=== PATIENT | female | born 1995 | race Caucasian/White ===

== ENCOUNTER 2017-03-30 12:00 | Emergency (ER) | payer OTHER ==
--- NOTE | 2017-03-30 14:16 | UC ---
Upper Extremity HPI - HPI Summary HPI Summary: Fall backwards onto buttocks and wrist. She has right wrist swelling and tenderness. She is right handed. She was snowboarding. - History of Current Complaint Chief Complaint: UCUpperExtremity Stated Complaint: RT WRIST INJURY Time Seen by Provider: 03/30/17 14:06 Hx Obtained From: Patient Hx Last Menstrual Period: 03/19/17 Onset/Duration: Sudden Onset, Lasting Hours Severity Initially: Moderate Severity Currently: Moderate Pain Intensity: 6 Location Of Pain: Is Discrete @ Character: Dull, Aching Aggravating Factor(s): Movement, Lifting, Flexion, Extension Alleviating Factor(s): Elevation, Rest Associated Signs And Symptoms: Positive: Swelling Related History: Dominant Hand Right - Allergies/Home Medications Allergies/Adverse Reactions: Allergies Allergy/AdvReac Type Severity Reaction Status Date / Time cillins Allergy Hives Uncoded 03/30/17 13:54 Home Medications: Home Medications Bcp 1 tab PO DAILY 03/30/17 [History] Ibuprofen [Ibuprofen 200 MG] 600 mg PO BID PRN 03/30/17 [History Confirmed 03/30] PMH/Surg Hx/FS Hx/Imm Hx Previously Healthy: Yes - Surgical History Surgical History: None - Family History Known Family History: Positive: Other - no related wrist family history. - Social History Occupation: Student Alcohol Use: None Substance Use Type: None Smoking Status (MU): Never Smoked Tobacco Review of Systems Musculoskeletal: Arthralgia All Other Systems Reviewed And Are Negative: Yes Physical Exam Triage Information Reviewed: Yes Appearance: Well-Appearing, Well-Nourished, Pain Distress - prefers not to move right wrist. Vital Signs: Initial Vital Signs Temp 99.2 F 03/30/17 13:55 Pulse 91 03/30/17 13:55 Resp 18 03/30/17 13:55 BP 127/74 03/30/17 13:55 Pulse Ox 100 03/30/17 13:55 Vital Signs Reviewed: Yes Eyes: Positive: Conjunctiva Clear ENT: Positive: Normal ENT inspection Neck: Positive: Supple, Nontender, No Lymphadenopathy Respiratory: Positive: No respiratory distress, No accessory muscle use. Negative: Respiratory distress, Decreased breath sounds, Accessory muscle use, Crackles, Rhonchi, Stridor Cardiovascular: Positive: Brisk Capillary Refill Abdomen Description: Negative: Distended, Guarding Musculoskeletal Exam: Other - Right wrist distal radius swelling and tenderness. No snuff box tenderness. No obvious deformity. No metacarpal tenderness or swelling. No elbow tenderness. Neurological: Positive: Alert, Muscle Tone Normal. Negative: Fatigued Psychological: Positive: Normal Response To Family, Age Appropriate Behavior Skin: Negative: rashes Diagnostics - Radiology No standard instances Xray Interpretation: Positive (See Comments) - right distal radius buckle fracture. Radiology Interpretation Completed By: ED Physician Upper Extremity Course/Dx - Differential Dx/Diagnosis Provider Diagnoses: right wrist fracture. Discharge - Discharge Plan Condition: Good Disposition: HOME Patient Education Materials: Wrist Fracture in Adults (ED) Forms: *School Release Referrals: No Primary Care Phys,NOPCP [Primary Care Provider] - Edu Heard MD [Medical Doctor] -
--- NOTE | 2017-03-30 14:49 | RAD ---
INDICATION: Traumatic fracture right wrist COMPARISON: None TECHNIQUE: AP, lateral, and oblique views were obtained. FINDINGS: There is a mildly impacted intra-articular distal radial fracture. No other fractures are evident. There is mild diffuse soft tissue swelling. IMPRESSION: MILD IMPACTED INTRA-ARTICULAR FRACTURE OF THE DISTAL RADIUS
== END 2017-03-30 14:55 | disposition home or self-care (01) ==
LOC: UCCORT 12:00
DX: S52.571A Other intraarticular fracture of lower end of right radius, initial encounter for closed fracture (principal); W19.XXXA Unspecified fall, initial encounter; Y93.23 Activity, snow (alpine) (downhill) skiing, snowboarding, sledding, tobogganing and snow tubing; Y92.9 Unspecified place or not applicable; Z88.0 Allergy status to penicillin
CPT/HCPCS: 25600; 99201; G0463

== ENCOUNTER 2017-04-17 16:10 | Emergency (ER) | payer OTHER ==
[2017-04-17 18:26] VITALS: BP 131/81
--- NOTE | 2017-04-17 18:41 | UC ---
Throat Pain/Nasal Brody HPI - HPI Summary HPI Summary: 21 year old female with sore throat. Sore throat onset this AM, headache, muscle aches,feeling cold [ End ] - History of Current Complaint Chief Complaint: UCRespiratory Stated Complaint: SORE THROAT, HEADACHE Time Seen by Provider: 04/17/17 18:34 Hx Obtained From: Patient Hx Last Menstrual Period: 04/09/17 Onset/Duration: Sudden Onset Pain Intensity: 3 - Allergies/Home Medications Allergies/Adverse Reactions: Allergies Allergy/AdvReac Type Severity Reaction Status Date / Time banana Allergy Vomiting Verified 04/17/17 18:11 cillins Allergy Hives Uncoded 04/17/17 18:11 pine Allergy Swelling Uncoded 04/17/17 18:11 Of Face,Lips,& Throat Home Medications: Home Medications Eucalyptus/Menthol [Cerna Cough Drops] 1 aisha MT Q3H PRN 04/17/17 [History Confirmed 04/17/17] PMH/Surg Hx/FS Hx/Imm Hx Previously Healthy: Yes - Surgical History Surgical History: None - Family History Known Family History: Positive: Other - no related wrist family history. - Social History Occupation: Student Lives: Dormitory/Roommates Alcohol Use: None Substance Use Type: None Smoking Status (MU): Never Smoked Tobacco Review of Systems Constitutional: Fatigue ENT: Sore Throat, Nasal Discharge Musculoskeletal: Arthralgia Is Patient Immunocompromised?: No All Other Systems Reviewed And Are Negative: Yes Physical Exam Triage Information Reviewed: Yes Appearance: Well-Appearing, No Pain Distress, Well-Nourished Vital Signs: Initial Vital Signs Temp 100.1 F 04/17/17 18:14 Pulse 115 04/17/17 18:14 Resp 18 04/17/17 18:14 BP 131/81 04/17/17 18:14 Pulse Ox 100 04/17/17 18:14 Vital Signs Reviewed: Yes Eye Exam: Normal ENT Exam: Normal Dental Exam: Normal Neck exam: Normal Neck: Positive: 1 Respiratory Exam: Normal Cardiovascular Exam: Normal Musculoskeletal Exam: Normal Neurological Exam: Normal Psychological Exam: Normal Skin Exam: Normal Throat Pain/Nasal Course/Dx - Differential Dx/Diagnosis Differential Diagnosis/HQI/PQRI: Laryngitis, Pharyngitis, Sinusitis, Tonsillitis , URI Discharge - Discharge Plan Referrals: Nimisha Davison MD [Primary Care Provider] -
--- NOTE | 2017-04-17 18:50 | UC ---
Throat Pain/Nasal Brody HPI - HPI Summary HPI Summary: 21 y/o female presents to the urgent care c/o sore throat, MEJIA and muscle aches and chills since this morning. Mild subjective fever this morning. She took Ibuprofen PO 400mg to alleviate symptoms and she felt better. No flu exposure. Pain is 3/10 w/ swallowing. Pt is concern w/ strep since she has Hx of Strep in the past. PT denies cough, nasal congestion, SOB, chest pain, abdominal pain, N/ V/D - History of Current Complaint Chief Complaint: UCRespiratory Stated Complaint: SORE THROAT, HEADACHE Time Seen by Provider: 04/17/17 18:34 Hx Obtained From: Patient Hx Last Menstrual Period: 04/09/17 ?: No Onset/Duration: Gradual Onset, Lasting Days - today Severity: Mild Pain Intensity: 3 Pain Scale Used: 0-10 Numeric Cough: None Associated Signs & Symptoms: Positive: Dysphagia, Fever - subjective w/ chills. Negative: Sinus Discomfort, Nasal Discharge, Rash - Epiglottits Risk Factors Epiglottis Risk Factors: Negative - Allergies/Home Medications Allergies/Adverse Reactions: Allergies Allergy/AdvReac Type Severity Reaction Status Date / Time banana Allergy Vomiting Verified 04/17/17 18:11 cillins Allergy Hives Uncoded 04/17/17 18:11 pine Allergy Swelling Uncoded 04/17/17 18:11 Of Face,Lips,& Throat Home Medications: Home Medications Eucalyptus/Menthol [Cough Drops] 1 aisha MT Q3H PRN 04/17/17 [History Confirmed ] PMH/Surg Hx/FS Hx/Imm Hx Previously Healthy: Yes - Pt denies PMHX - Surgical History Surgical History: None - Family History Known Family History: Positive: None - Pt denies FMHX - Social History Occupation: Student Lives: With Family Alcohol Use: None Substance Use Type: None Smoking Status (MU): Never Smoked Tobacco - Immunization History Vaccination Up to Date: Yes Review of Systems Constitutional: Fever, Chills Skin: Negative Eyes: Negative ENT: Sore Throat Respiratory: Negative Cardiovascular: Negative Gastrointestinal: Negative Genitourinary: Negative Motor: Negative Neurovascular: Negative Musculoskeletal: Negative Neurological: Headache Psychological: Negative Is Patient Immunocompromised?: No All Other Systems Reviewed And Are Negative: Yes Physical Exam Triage Information Reviewed: Yes Vital Signs: Initial Vital Signs Temp 100.1 F 04/17/17 18:14 Pulse 115 04/17/17 18:14 Resp 18 04/17/17 18:14 BP 131/81 04/17/17 18:14 Pulse Ox 100 04/17/17 18:14 - Additional Comments VITAL SIGNS: Reviewed. GENERAL: Patient is a well developed and nourished female who is sitting comfortable in the examining table. Patient is not in any acute respiratory distress. HEAD AND FACE: No signs of trauma. No ecchymosis, hematomas or skull depressions. No sinus tenderness. EYES: PERRLA, EOMI x 2, No injected conjunctiva, no nystagmus. No photophobia. EARS: Hearing grossly intact. Ear canals and tympanic membranes are within normal limits. MOUTH: Positive pharynx with erythema, exudates, palatal petechiae. B/L tonsillar enlargement with exudate. Uvula in midline. NECK: Supple, trachea is midline, Positive anterior cervical lymphadenopathy, no JVD, no carotid bruit, no c-spine tenderness, neck with full ROM. No meningeal signs, no Kernig's or brudzinskis signs. CHEST: Symmetric, no tenderness at palpation LUNGS: Clear to auscultation bilaterally. No wheezing or crackles. CVS: Regular rate and rhythm, S1 and S2 present, no murmurs or gallops appreciated. ABDOMEN: Soft, non-tender. No signs of distention. No rebound no guarding, and no masses palpated. Bowel sounds are normal. EXTREMITIES: FROM in all major joints, no edema, no cyanosis or clubbing. NEURO: Alert and oriented x 3. No acute neurological deficits. Speech is normal and follows commands. SKIN: Dry and warm Throat Pain/Nasal Course/Dx - Course Course Of Treatment: 21 y/o female presents to the urgent care c/o sore throat, MEJIA and muscle aches and chills since this morning. Mild subjective fever this morning. She took Ibuprofen PO 400mg to alleviate symptoms and she felt better. No flu exposure. Pain is 3/10 w/ swallowing. Pt is concern w/ strep since she has Hx of Strep in the past. PT denies cough, nasal congestion, SOB, chest pain , abdominal pain, N/V/D. Pt w/ pharyngitis on examination. Rapid strep ordered, result: negative. Viral pharyngitis.Pt Rx ibuprofen PO to alleviates symptoms of pain and swelling. Advised on hand washing to avoid spreading. Pt advised to rest, eat well and avoid strenuous exercise. If symptoms do not improve or worsen advised to return to the urgent care or f/u with her PCP for further evaluation and treatment. Pt understood and agreed - Differential Dx/Diagnosis Differential Diagnosis/HQI/PQRI: Influenza, Laryngitis, Mononucleosis, Pharyngitis, Tonsillitis, URI Provider Diagnoses: 1- Viral pharyngitis Discharge - Discharge Plan Condition: Stable Disposition: HOME Prescriptions: Ibuprofen TAB* [Motrin TAB* 600 MG] 600 mg PO Q6H PRN #20 tab PRN Reason: Fever Patient Education Materials: Pharyngitis (ED) Referrals: Nimisha Davison MD [Primary Care Provider] - 3 Days Additional Instructions: 1-Please take ibuprofen PO q6-8hrs prn as instructed after meals to alleviate pain and swelling. Increase fluid intake, eat well, rest and avoid strenuous exercise 2-If symptoms do not improve or worsen please return to the urgent care or f/u with your PCP for further evaluation and treatment.
== END 2017-04-17 18:58 | disposition home or self-care (01) ==
LOC: UCCORT 16:10
DX: J02.9 Acute pharyngitis, unspecified (principal)
CPT/HCPCS: 87651; 99212; G0463

== ENCOUNTER 2018-01-09 14:12 | Emergency (ER) | payer OTHER ==
--- OUTSIDE RECORDS SUMMARY | 2018-01-09 14:53 | XMS REPORT | Continuity of Care Document ---
:1995 External Reference #:[id number] Author Name Mag Edouard PA Address [address] [place] [address] Care Team Providers Name Role Phone Nimisha Davison MD Care Team Information Revolving Inventory Clerk Unavailable Payers Type Date Identification Numbers Payment Provider Subscriber Policy Number: [id number] Oumar Reynold Warren PayID: [id number] [address] [place] [address] Advance Directives Description No Information Available Problems Description No Information Family History Date Family Member(s) Problem(s) Comments Father Good Health Mother Kidney Stones Social History Type Date Description Comments Sex Unknown Education Hightest level at [employer] - [employer] completed, 1 year of general studies. 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 Marital Status Single Lives With Younger Brother Lives With Older Sister Lives With Mother And Father Lives With Younger Sister Diet Healthy, Well Balanced Occupation Student Hand Dominance RIGHT-handed Abuse No history of abuse Hobbies Running Hobbies writing ETOH Use Denies alcohol use Tobacco Use Start: Unknown Patient has never smoked Recreational Drug Use Never Used Drugs Smoking Status Reviewed: 04/15/17 Patient has never smoked Currently Active Patient is currently sexually active Allergies, Adverse Reactions, Alerts Date Description Reaction Status Severity Comments 04/02/2016 Amoxicillin Active hives, swelling of face 04/02/2016 Penicillin Active hives, swelling of face 12/16/2017 Bananas Active Medications Medication Date Status Form Strength Qnty SIG Indications Ordering Provider Norgestimate-Eth 01/09/ Active Tablets 0.25-35mg- 168tab 1 by Z00.00 Saman Estradiol 2017 mcg s mouth MD Nimisha daily Ibuprofen 00/ Active Tablets 200mg 1-2 by Unknown 0000 mouth every 6 hours with food or snack as needed pain Sudafed 12 Hour 00/00/ Active Tablets ER 120mg 1 in in Unknown 0000 12HR the morning Hydrocortisone 11/05/ Hx Cream 2.5% 28.350 apply to R21 Dolly 2018 - gm affected a, Leno, 2018 four MD times a day as needed Nitrofurantoin 05/30/ Hx Capsules 100mg 14caps 1 by Alvarenga, Monohyd Macro 2017 - mouth Myron, 06/06/ twice a DO 2017 day x 7 days Nitrofurantoin 05/09/ Hx Capsules 100mg 14caps 1 by R30.0 Lyle, Monohyd Macro 2018 - mouth Myron, 05/16/ twice a DO 2017 day x 7 days Doxycycline 11/14/ Hx Capsules 100mg 20caps 1 by L70.0 Rahul Davison 2016 - mouth MD Nimisha 04/15/ 2017 daily x 10 days Mononessa 04/02/ Hx Tablets 0.25-35mg- 168tab 1 po Z00.00 Silke 2017 - mcg s daily Mag, 01/09/ CARL Millan Medications Administered in Office Medication Date Status Form Strength Qnty SIG Indications Ordering Provider PPD Administered Injection Schedule, 8 Nurses Immunizations CPT Code Status Date Vaccine Reaction Lot # [id number] Given 02/25/2017 Meningococcal Im inj completed, Pt [id number] B(Bexsero)protn otrMembran tolerated well Vesicle Vccn 2 [place] [address] Given 08/23/2016 Gardasil-9 (HPV) Nonavalent Im inj completed, Pt [id number] 2-3 Dose Schedule Im tolerated well 91963 Given 09/13/2013 Gardasil-9 (HPV) Nonavalent 2-[place] [address] Given 06/30/2012 HPV Vaccine (Gardasil) 3 Dose Schedule 05916 Given 10/24/2008 Hepatitis A, Ped/Adolescent 2 Dose Schedule 11467 Given 10/22/2006 Tdap (Adacel) Ages 7 And Above Only 05876 Given 10/22/2006 Hepatitis A, Ped/Adolescent 2 Dose Schedule 60510 Given 10/22/2006 Varicella-Zoster Immune Globulin 78292 Given 07/02/2004 Prevnar 13 Pneumococal Conjugate Vaccine 61521 Given 01/13/2002 Prevnar 13 Pneumococal Conjugate Vaccine 93150 Given 09/18/2001 IPV / Poliomyelitis Immunization 11117 Given 09/18/2001 MMR Virus Immunization 35649 Given 09/18/2001 DTaP Immunization 7 Yrs & Younger 37037 Given 01/11/1998 Varicella-Zoster Immune Globulin 85087 Given 01/11/1998 DTaP Immunization 7 Yrs & Younger 62145 Given 01/11/1998 MMR Virus Immunization 78664 Given 01/11/1998 IPV / Poliomyelitis Immunization 55113 Given 06/20/1997 Hepatitis B Vac Ped/Adolescent 3 Dose Schedule 01820 Given 03/16/1997 Hepatitis B Vac Ped/Adolescent 3 Dose Schedule 51728 Given 03/16/1997 DTaP Immunization 7 Yrs & Younger 19509 Given 01/19/1997 IPV / Poliomyelitis Immunization 93865 Given 01/19/1997 DTaP Immunization 7 Yrs & Younger 84841 Given 01/19/1997 Hib Pedvaxhib Vac 3 Dose Schedule 27185 Given 1996 IPV / Poliomyelitis Immunization 87995 Given 1996 DTaP Immunization 7 Yrs & Younger 64779 Given 1996 Hib Pedvaxhib Vac 3 Dose Schedule 43190 Given 1996 Hepatitis B Vac Ped/Adolescent 3 Dose Schedule Vital Signs Date Vital Result Comment 01/07/2018 11:29am Body Temperature 98.7 F Weight 126.00 lb Heart Rate 74 /min BP Systolic 110 mmHg BP Diastolic 68 mmHg Respiratory Rate 16 /min Height 65 inches 5'5" O2 % BldC Oximetry 98 % Ra BMI (Body Mass Index) 21.0 kg/m2 12/16/2017 3:35pm Body Temperature 98.8 F tympanic Weight 127.25 lb Heart Rate 76 /min BP Systolic 124 mmHg BP Diastolic 76 mmHg Respiratory Rate 16 /min Height 65 inches 5'5" 04/15/17 BMI (Body Mass Index) 21.2 kg/m2 11/05/2017 4:35pm Weight 127.00 lb Heart Rate 72 /min BP Systolic 120 mmHg BP Diastolic 80 mmHg Respiratory Rate 18 /min Height 65 inches 5'5" 04/15/17 BMI (Body Mass Index) 21.1 kg/m2 05/30/2017 4:08pm Body Temperature 98.6 F Weight 124.00 lb Heart Rate 76 /min BP Systolic 112 mmHg BP Diastolic 76 mmHg Respiratory Rate 14 /min Height 65 inches 5'5" 04/15/17 BMI (Body Mass Index) 20.6 kg/m2 05/09/2017 9:50am Body Temperature 98.2 F Weight 123.00 lb Heart Rate 78 /min BP Systolic 120 mmHg BP Diastolic 80 mmHg Respiratory Rate 18 /min Height 65 inches 5'5" 04/15/17 BMI (Body Mass Index) 20.5 kg/m2 04/15/2017 11:28am Weight 124.00 lb Heart Rate 68 /min BP Systolic 124 mmHg BP Diastolic 70 mmHg Respiratory Rate 18 /min Height 65 inches 5'5" 04/15/17 BMI (Body Mass Index) 20.6 kg/m2 11/14/2016 1:04pm Body Temperature 99.5 F Weight 124.00 lb Heart Rate 76 /min BP Systolic 110 mmHg BP Diastolic 70 mmHg Respiratory Rate 18 /min Height 65 inches 5'5" 11/14/16 BMI (Body Mass Index) 20.6 kg/m2 04/02/2016 11:06am Weight 119.00 lb Heart Rate 76 /min BP Systolic 112 mmHg BP Diastolic 50 mmHg Respiratory Rate 18 /min Height 65 inches 5'5" BMI (Body Mass Index) 19.8 kg/m2 Body Mass Index Percentile 3 % Results Test Date Facility Test Result H/L Range Note Laboratory test 01/07/2018 [facility] Early Ag <pending> finding Igg-RL [facility] Nuclear Ag Igg-RL <pending> [facility] Igg-RL <pending> [facility] Igm-RL <pending> Laboratory 11/06/2017 [facility] Lyme Total < 0.91 ISR 0.00-0.90 1, 2 test finding (315)- - AB/Reflex To WB Laboratory 05/30/2017 [facility] Urine Microbiology 3 test finding Culture res <SEE NOTE> Laboratory 05/09/2017 [facility] Urine Microbiology Abnormal 4 test finding Culture res <SEE NOTE> GC/Chlamydia 11/14/2016 [facility] Chlamydia NEGATIVE Negative By Dna Probe by Dna Probe GC by Dna Probe NEGATIVE Negative Laboratory test 11/14/2016 [facility] Throat Culture Microbiology res 5 finding <SEE NOTE> HIV Combo By Eia 04/02/2016 [facility] [employer] Worker HIV NON REACTIVE Non Reactive 6 Combo CBC With Auto 04/02/2016 [facility] WBC 6.7 K/uL 4.1-11.0 Diff RBC 4.98 M/uL 4.00-5.40 Hemoglobin 14.5 gm/dL 12.0-16.0 Hematocrit 43.1 % 36.0-47.0 MCV 86.5 fL 80.0-97.0 MCH 29.1 pg 27.0-32.0 MCHC 33.6 g/dL 32.0-36.0 RDW 12.2 % 11.5-14.5 PLT Count 233 K/ul 140-400 Neutrophil 59.3 % 35.0-75.0 Lymphocyte 31.0 % 16.0-52.0 Monocyte 7.3 % 2.0-10.0 Eosinophil 1.9 % 0.0-5.0 Basophil 0.5 % 0.0-4.0 Abs Neutrophils 4.0 K/uL 2.1-8.0 Abs Lymphocytes 2.1 K/uL 0.8-5.5 Abs Monocytes 0.5 K/uL 0.1-1.0 Abs Eosinophils 0.1 K/uL 0.0-0.5 Abs Basophils 0.0 K/uL 0.0-0.3 Laboratory test finding 04/02/2016 [facility] TSH 1.55 uIU/mL 0.35-4.94 Comprehensive Metabolic (CMP) 04/02/2016 [facility] Sodium 139 mmol/L 134- 142 Potassium 3.9 mmol/L 3.5-5.2 Chloride 103 mmol/L 97-109 Carbon Dioxide 28 mmol/L 24-34 Glucose 86 mg/dL 70-105 BUN 10 mg/dL 6-26 Creatinine 0.7 mg/dL 0.5-1.4 Calcium 9.8 mg/dL 8.5-10.2 Total Protein 7.0 g/dL 6.0-8.0 Albumin 4.6 g/dL 3.6-4.9 Globulin 2.4 g/dL 2.0-3.5 A/G Ratio 1.9 Ratio 1.0-2.2 Total Bilirubin 0.5 mg/dL 0.1-1.3 Alkaline Phosphatase 38 U/L 24-140 Alt 11 U/L 3-42 Ast 15 U/L 8-42 Anion Gap 12 mmol/L 6-14 Lorri Egfr >60 >60 7 Non Lorri Egfr >60 >60 8 Lipid 04/02/2016 [facility] Cholesterol 179 mg/dL 50-199 Triglycerides 111 mg/dL 30-200 HDL 46 mg/dL 35-85 9 Chol/ HDL Ratio 3.9 ratio 3.7-5.6 VLDL 22 mg/dL 2-29 LDL (Calc) 111 mg/dL High 20-99 10 1 RED ITCHY SPOTS, UPPER LEFT SIDE 2 Negative <0.91 Equivocal 0.91 - 1.09 Positive >1.09 Performed at: RN - [facility] [address] [id number] [employer] Operator: Brandi Smart MD, Phone: [phone] 3 Microbiology results SOURCE Random urine FINAL RESULT No growth 4 Microbiology results SOURCE Random urine COLONY COUNT >100,000 CFU/ML PRELIMINARY RESULT Gram Negative Seferino. ID & Sensitivity to Follow. 05/10/2017 4:09 PM FINAL RESULT Escherichia coli (Isolate 1) Sensitivity Analysis Isolate 1 --------- AMIKACIN <=16 S AMOXICILLIN/CLAVULANATE <=8/4 S AMPICILLIN >16 R AMPICILLIN/SULBACTAM 16/8 I CEFAZOLIN <=2 S CEFEPIME <=8 S CEFOTAXIME <=2 S CEFTRIAXONE <=1 S CEFUROXIME <=4 S CIPROFLOXACIN <=1 S ERTAPENEM <=0.5 S GENTAMYCIN <=2 S IMIPENEM <=1 S LEVOFLOXACIN <=2 S NITROFURANTOIN <=32 S PIPERACILLIN/TAZOBACTAM <=16 S TETRACYCLINE <=4 S TOBRAMYCIN <=4 S TRIMETHOPRIM/SULFAMETHOXAZ <=2/38 S S=Sensitive;I=Indeterminate;R=Resistant 5 Microbiology results RESULT Normal throat alli.No beta hemolytic streptococci isolated. 6 today 7 Concerning GFR Guidelines for Americans: Normal function or mild renal disease, if clinically at risk: >/=60 mL/min Moderately decreased: 30-59 Severely decreased: 15-29 Renal failure: <15 8 Concerning GFR Guidelines: Normal function or mild renal disease, if clinically at risk: >/=60 mL/min Moderately decreased: 30-59 Severely decreased: 15-29 Renal failure: <15 Glomerular Filtration Rate (GFR) is estimated based on the MDRD equation, which assumes a steady state for creatinine as recommended by the National Kidney Disease Education Program in conjunction with the National Institutes of Health and the National Kidney Foundation. Clinical conditions in which it may be necessary to measure GFR by using clearance methods include extremes of age and body size, severe malnutrition or obesity, diseases of skeletal muscle, paraplegia or quadriplegia, vegetarian diet, rapidly changing kidney function, and calculation of the dose of potentially toxic drugs that are excreted by the kidneys. 9 Per NCEP ATP III Guidelines: Results lower than 40 mg/dL are suggestive of increased risk for coronary artery disease. Results > or=to 60 mg/dL are considered a negative risk factor. 10 Per NCEP ATP III Guidelines: Normal Population <130 Patients with medical conditions: CHD/DM Optimal: <100 Borderline high: 130-159 High: 160-189 Very high: >189 Procedures Description No Information Available Encounters Type Date Location Provider Dx Diagnosis Office Visit 12/16/2017 3:30p [facility] Antonia Felton NP R05 Cough R20.8 Other disturbances of skin sensation Office Visit 11/05/2017 4:30p [facility] Leno Felton, R21 Rash and other MD nonspecific skin eruption Office Visit 05/30/2017 4:15p [facility] Mag Edouard PA R30.0 Dysuria Office Visit 05/09/2017 9:45a [facility] Mag Edouard PA R30.0 Dysuria Office Visit 04/15/2017 11:15a [facility] Nimisha Davison MD Z00.00 Encntr for general adult medical exam w/o abnormal findings Office Visit 04/03/2017 3:30p [facility] Schedule, Nurses Z11.1 Encounter for screening for respiratory tuberculosis Office Visit 11/14/2016 1:00p [facility] Nimisha Davison MD L70.0 Acne vulgaris J02.9 Acute pharyngitis, unspecified Z11.3 Encntr screen for infections w sexl mode of transmiss Office Visit 04/02/2016 11:00a [facility] Nimisha Davison MD Z00.00 Encntr for general adult medical exam w/o abnormal findings Z11.4 Encounter for screening for human immunodeficiency virus N92.6 Irregular menstruation, unspecified Plan of Treatment Future Appointment(s):04/20/2018 11:00 am - Antonia Felton NP at [facility]01/07 - Mag Edouard PAJ02.9 Acute pharyngitis, unspecifiedComments:Rapid strep negWill check labs for evalPush fluidsTylenol/motrin as needed for painSalt water gargles Call with any questions or concernsFollow up:Prn
--- OUTSIDE RECORDS SUMMARY | 2018-01-09 14:53 | XMS REPORT ---
:1995 External Reference #:[id number] Author Organization [facility] Address [address] [address] Phone [phone] Care Team Providers Name Role Phone Nimisha Davison MD Care Team Information Marketing Project Specialist Unavailable Payers Type Date Identification Numbers Payment Provider Subscriber Commercial Policy Number: [id number] [facility] Kay Warren PayID: [id number] [address] [place] [address] Problems Description No Information Family History Date Family Member(s) Problem(s) Comments Father Good Health Mother Kidney Stones Social History Type Date Description Comments Education Hightest level completed, 1 at 3 - takes general year of college studies. 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 Marital Status Single Lives With Younger Brother Lives With Older Sister Lives With Mother And Father Lives With Younger Sister Diet Healthy, Well Balanced Occupation Student Hand Dominance RIGHT-handed Abuse No history of abuse Hobbies Running Hobbies writing ETOH Use Denies alcohol use Smoking Patient has never smoked Recreational Drug Use Never Used Drugs Currently Active Patient is currently sexually active Allergies, Adverse Reactions, Alerts Date Description Reaction Status Severity Comments 04/02/2016 Amoxicillin active hives, swelling of face 04/02/2016 Penicillin active hives, swelling of face 12/16/2017 Bananas active Medications Medication Date Status Form Strength Qnty SIG Indications Ordering Provider Norgestimate-Eth 01/09/ Active Tablets 0.25-35mg- 168tab 1 by mouth Z00.00 Saman Estradiol 2017 mcg s daily MD Nimisha Hydrocortisone 11/05/ Hx Cream 2.5% 28.350 apply to [facility] Dolly 2018 - affected a, 11/15/ areas Leno, 2018 four times MD a day as needed Nitrofurantoin 05/30/ Hx Capsules 100mg 14caps 1 by mouth Alvarenga, Monohyd Macro 2018 - twice a Myron, 06/06/ day x 7 DO 2018 days Nitrofurantoin 05/09/ Hx Capsules 100mg 14caps 1 by mouth R30.0 Alvarenga, Monohyd Macro 2018 - twice a Myron, 05/16/ day x 7 DO 2018 days Doxycycline 11/14/ Hx Capsules 100mg 20caps 1 by mouth L70.0 Rahul Davison 2016 - twice MD Nimisha 04/15/ daily x 10 2018 days Mononessa 04/02/ Hx Tablets 0.25-35mg- 168tab 1 po daily Z00.00 Silke 2017 - nelly Hathaway, 2016 Medications Administered in Office Medication Date Status Form Strength Qnty SIG Indications Ordering Provider PPD Administered Injection Schedule, 8 Nurses Immunizations CPT Code Status Date Vaccine Reaction Lot # [id number] Given 02/25/2017 Meningococcal Im inj completed, Pt [id number] B(Bexsero)protn otrMembran tolerated well Vesicle [place]ccn 2 [place] [address] Given 08/23/2016 Gardasil-9 (HPV) Nonavalent Im inj completed, Pt [id number] 2-3 Dose Schedule Im tolerated well 52778 Given 09/13/2013 Gardasil-9 (HPV) Nonavalent 2-[place] [address] Given 06/30/2012 HPV Vaccine (Gardasil) 3 Dose Schedule 04210 Given 10/24/2008 Hepatitis A, Ped/Adolescent 2 Dose Schedule 75279 Given 10/22/2006 Tdap (Adacel) Ages 7 And Above Only 74768 Given 10/22/2006 Hepatitis A, Ped/Adolescent 2 Dose Schedule 16432 Given 10/22/2006 Varicella-Zoster Immune Globulin 70961 Given 07/02/2004 Prevnar 13 Pneumococal Conjugate Vaccine 50622 Given 01/13/2002 Prevnar 13 Pneumococal Conjugate Vaccine 63587 Given 09/18/2001 IPV / Poliomyelitis Immunization 06437 Given 09/18/2001 MMR Virus Immunization 28447 Given 09/18/2001 DTaP Immunization 7 Yrs & Younger 63076 Given 01/11/1998 Varicella-Zoster Immune Globulin 78523 Given 01/11/1998 DTaP Immunization 7 Yrs & Younger 24680 Given 01/11/1998 MMR Virus Immunization 53341 Given 01/11/1998 IPV / Poliomyelitis Immunization 84302 Given 06/20/1997 Hepatitis B Vac Ped/Adolescent 3 Dose Schedule 34695 Given 03/16/1997 Hepatitis B Vac Ped/Adolescent 3 Dose Schedule 92633 Given 03/16/1997 DTaP Immunization 7 Yrs & Younger 45975 Given 01/19/1997 IPV / Poliomyelitis Immunization 03115 Given 01/19/1997 DTaP Immunization 7 Yrs & Younger 07538 Given 01/19/1997 Hib Pedvaxhib Vac 3 Dose Schedule 51952 Given 1996 IPV / Poliomyelitis Immunization 49409 Given 1996 DTaP Immunization 7 Yrs & Younger 19018 Given 1996 Hib Pedvaxhib Vac 3 Dose Schedule 69099 Given 1996 Hepatitis B Vac Ped/Adolescent 3 Dose Schedule Vital Signs Date Vital Result Comment 12/16/2017 Body Temperature 98.8 F tympanic Weight 127.25 lb Heart Rate 76 /min BP Systolic 124 mmHg BP Diastolic 76 mmHg Respiratory Rate 16 /min Height 65 inches 5'5" 04/15/17 BMI (Body Mass Index) 21.2 kg/m2 11/05/2017 Weight 127.00 lb Heart Rate 72 /min BP Systolic 120 mmHg BP Diastolic 80 mmHg Respiratory Rate 18 /min Height 65 inches 5'5" 04/15/17 BMI (Body Mass Index) 21.1 kg/m2 05/30/2017 Body Temperature 98.6 F Weight 124.00 lb Heart Rate 76 /min BP Systolic 112 mmHg BP Diastolic 76 mmHg Respiratory Rate 14 /min Height 65 inches 5'5" 04/15/17 BMI (Body Mass Index) 20.6 kg/m2 05/09/2017 Body Temperature 98.2 F Weight 123.00 lb Heart Rate 78 /min BP Systolic 120 mmHg BP Diastolic 80 mmHg Respiratory Rate 18 /min Height 65 inches 5'5" 04/15/17 BMI (Body Mass Index) 20.5 kg/m2 04/15/2017 Weight 124.00 lb Heart Rate 68 /min BP Systolic 124 mmHg BP Diastolic 70 mmHg Respiratory Rate 18 /min Height 65 inches 5'5" 04/15/17 BMI (Body Mass Index) 20.6 kg/m2 11/14/2016 Body Temperature 99.5 F Weight 124.00 lb Heart Rate 76 /min BP Systolic 110 mmHg BP Diastolic 70 mmHg Respiratory Rate 18 /min Height 65 inches 5'5" 11/14/16 BMI (Body Mass Index) 20.6 kg/m2 04/02/2016 Weight 119.00 lb Heart Rate 76 /min BP Systolic 112 mmHg BP Diastolic 50 mmHg Respiratory Rate 18 /min Height 65 inches 5'5" BMI (Body Mass Index) 19.8 kg/m2 Body Mass Index Percentile 3 % Results Test Date Test Result H/L Range Note Laboratory test 11/06/2017 Lyme Total < 0.91 ISR 0.00-0.90 1, 2 finding AB/Reflex To WB Laboratory test 05/30/2017 Urine Culture Microbiology res 3 finding <SEE NOTE> Laboratory test 05/09/2017 Urine Culture Microbiology res 4 finding <SEE NOTE> GC/Chlamydia By 11/14/2016 Chlamydia by Dna NEGATIVE Negative Dna Probe Probe GC by Dna Probe NEGATIVE Negative Laboratory test 11/14/2016 Throat Culture Microbiology res 5 finding <SEE NOTE> HIV Combo By Eia 04/02/2016 Manager HIV NON REACTIVE Non Reactive 6 Combo CBC With Auto Diff 04/02/2016 WBC 6.7 K/uL 4.1-11.0 6 RBC 4.98 M/uL 4.00-5.40 6 Hemoglobin 14.5 gm/dL 12.0-16.0 6 Hematocrit 43.1 % 36.0-47.0 6 MCV 86.5 fL 80.0-97.0 6 MCH 29.1 pg 27.0-32.0 6 MCHC 33.6 g/dL 32.0-36.0 6 RDW 12.2 % 11.5-14.5 6 PLT Count 233 K/ul 140-400 6 Neutrophil 59.3 % 35.0-75.0 6 Lymphocyte 31.0 % 16.0-52.0 6 Monocyte 7.3 % 2.0-10.0 6 Eosinophil 1.9 % 0.0-5.0 6 Basophil 0.5 % 0.0-4.0 6 Abs Neutrophils 4.0 K/uL 2.1-8.0 6 Abs Lymphocytes 2.1 K/uL 0.8-5.5 6 Abs Monocytes 0.5 K/uL 0.1-1.0 6 Abs Eosinophils 0.1 K/uL 0.0-0.5 6 Abs Basophils 0.0 K/uL 0.0-0.3 6 Laboratory test finding 04/02/2016 TSH 1.55 uIU/mL 0.35-4.94 6 Comprehensive Metabolic (CMP) 04/02/2016 Sodium 139 mmol/L 134-142 6 Potassium 3.9 mmol/L 3.5-5.2 6 Chloride 103 mmol/L 97-109 6 Carbon Dioxide 28 mmol/L 24-34 6 Glucose 86 mg/dL 70-105 6 BUN 10 mg/dL 6-26 6 Creatinine 0.7 mg/dL 0.5-1.4 6 Calcium 9.8 mg/dL 8.5-10.2 6 Total Protein 7.0 g/dL 6.0-8.0 6 Albumin 4.6 g/dL 3.6-4.9 6 Globulin 2.4 g/dL 2.0-3.5 6 A/G Ratio 1.9 Ratio 1.0-2.2 6 Total Bilirubin 0.5 mg/dL 0.1-1.3 6 Alkaline Phosphatase 38 U/L 24-140 6 Alt 11 U/L 3-42 6 Ast 15 U/L 8-42 6 Anion Gap 12 mmol/L 6-14 6 Lorri Egfr >60 >60 6, 7 Non Lorri Egfr >60 >60 6, 8 Lipid 04/02/2016 Cholesterol 179 mg/dL 50-199 6 Triglycerides 111 mg/dL 30-200 6 HDL 46 mg/dL 35-85 6, 9 Chol/ HDL Ratio 3.9 ratio 3.7-5.6 6 VLDL 22 mg/dL 2-29 6 LDL (Calc) 111 mg/dL High 20-99 6, 10 1 RED ITCHY SPOTS, UPPER LEFT SIDE 2 Negative <0.91 Equivocal 0.91 - 1.09 Positive >1.09 Performed at: RN - [facility] [address] [id number] Hot Knife Foxing Cutter: Brandi Smart MD, Phone: [phone] Microbiology results SOURCE Random urine FINAL [...] Very high: >189 Procedures Description No Information Encounters Type Date Location Provider CPT E/M Dx Office Visit 11/05/2017 4:30p [facility] [place] [place] [address] R21 Office Visit 05/30/2017 4:15p [facility] [place] [address] R30.0 Office Visit 05/09/2017 9:45a [facility] [place] [address] R30.0 Office Visit 04/15/2017 11:15a [facility] [place] [address] Z00.00 Office Visit 04/03/2017 3:30p [facility] Sandhya, Nurses [address] Z11.1 Office Visit 11/14/2016 1:00p [facility] [place] [place] [address] L70.0 J02.9 Z11.3 Office Visit 04/02/2016 11:00a [facility] [place] [address] Z00.00 Z11.4 N92.6 Plan of Care Future Appointment(s):04/20/2018 11:00 am - Antonia Felton, 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
[2018-01-09 14:58] VITALS: BP 133/80
--- NOTE | 2018-01-09 15:13 | UC ---
Skin Complaint HPI - HPI Summary HPI Summary: 19 yo LMD DEC 17 2017, complaining of red "spots" on skin first noticed 11/7 am- -one located on left wrist, two on left elbow, small one on left 5th finger, and one on right forearm; very itchy, woke up with them while having sleep over at friend's house - History of Current Complaint Time Seen by Provider: 01/09/18 14:54 Stated Complaint: SKIN COMPLAINT Hx Obtained From: Patient Hx Last Menstrual Period: 04/09/17 ?: No - Allergy/Home Medications Allergies/Adverse Reactions: Allergies Allergy/AdvReac Type Severity Reaction Status Date / Time banana Allergy Vomiting Verified 01/09/18 14:58 cillins Allergy Hives Uncoded 01/09/18 14:58 pine Allergy Swelling Uncoded 01/09/18 14:58 Of Face,Lips,& Throat Home Medications: Home Medications Norgestimate-Ethinyl Estradiol [Estarylla 0.25-0.035 mg Tablet] 1 each PO BEDTIME 01/09/18 [History Confirmed 01/09/18] Review of Systems All Other Systems Reviewed And Are Negative: Yes Skin: Positive: Rash PMH/Surg Hx/FS Hx/Imm Hx Previously Healthy: Yes - Surgical History Surgical History: None - Family History Known Family History: Positive: None - Pt denies FMHX, Other - no related wrist family history. - Social History Alcohol Use: None Substance Use Type: None Smoking Status (MU): Never Smoked Tobacco - Immunization History Vaccination Up to Date: Yes Physical Exam Triage Information Reviewed: Yes Appearance: Well-Appearing, No Pain Distress, Well-Nourished Eye Exam: Normal ENT: Positive: Hearing grossly normal Neck: Positive: Supple, Nontender Respiratory: Positive: Chest non-tender, Lungs clear, Normal breath sounds, No respiratory distress Cardiovascular: Positive: RRR, No Murmur, Pulses Normal, Brisk Capillary Refill Abdomen Description: Positive: Nontender Musculoskeletal: Positive: Strength Intact, ROM Intact Skin: Positive: Rashes - macular rashes on left elbow, left wrist, right ventral forearm with central orifice , blanching Course/Dx - Course Course Of Treatment: patient presents with several areas of itchy rash compatible with insect bites, to start westcort cream as prescribed. Patient is instructed to apply ice on sites where there is more swelling and benadryl orally which she has at home for itching at night - Diagnoses Provider Diagnoses: insect bites Discharge - Sign-Out/Discharge Documenting (check all that apply): Patient Departure All imaging exams completed and their final reports reviewed: No Studies - Discharge Plan Condition: Stable Disposition: HOME Patient Education Materials: Insect Bite or Sting (ED) Referrals: Nimisha Davison MD [Primary Care Provider] - - Billing Disposition and Condition Condition: STABLE Disposition: Home
== END 2018-01-09 15:28 | disposition home or self-care (01) ==
LOC: UCCORT 14:12
DX: S60.562A Insect bite (nonvenomous) of left hand, initial encounter (principal); W57.XXXA Bitten or stung by nonvenomous insect and other nonvenomous arthropods, initial encounter; Y92.9 Unspecified place or not applicable
CPT/HCPCS: 99212; G0463

== ENCOUNTER 2018-09-11 11:12 | Emergency (ER) | payer OTHER ==
[2018-09-11 12:04] VITALS: BP 118/74
--- NOTE | 2018-09-11 14:00 | UC ---
Complaint Female HPI - HPI Summary HPI Summary: Pt presents with c/o sudden onset of urinary urgency, frequency and dysuria X 2 days. - History Of Current Complaint Chief Complaint: UCGU Stated Complaint: URINARY Time Seen by Provider: 09/11/18 12:48 Hx Obtained From: Patient Hx Last Menstrual Period: 08/19/2018 ?: No Onset/Duration: Sudden Onset, Lasting Days, Still Present Timing: Constant Severity Initially: Mild Severity Currently: Mild Pain Intensity: 6 Pain Scale Used: 0-10 Numeric Character: Dull, Burning Aggravating Factor(s): Urination Alleviating Factor(s): Nothing Associated Signs And Symptoms: Positive: Negative - Risk Factors Ectopic Risk Factor: Negative Ovarian Torsion Risk Factor: Reproductive Age - Allergies/Home Medications Allergies/Adverse Reactions: Allergies Allergy/AdvReac Type Severity Reaction Status Date / Time banana Allergy Vomiting Verified 09/11/18 12:00 cillins Allergy Hives Uncoded 09/11/18 12:00 pine Allergy Swelling Uncoded 09/11/18 12:00 Of Face,Lips,& Throat PMH/Surg Hx/FS Hx/Imm Hx Previously Healthy: Yes - Surgical History Surgical History: None - Family History Known Family History: Positive: None - Pt denies FMHX, Other - no related wrist family history. - Social History Occupation: Student Lives: With Family Alcohol Use: Occasionally Substance Use Type: None Smoking Status (MU): Never Smoked Tobacco Have You Smoked in the Last Year: No - Immunization History Vaccination Up to Date: Yes Review of Systems All Other Systems Reviewed And Are Negative: Yes Constitutional: Positive: Negative Skin: Positive: Negative Eyes: Positive: Negative ENT: Positive: Negative Respiratory: Positive: Negative Cardiovascular: Positive: Negative Gastrointestinal: Positive: Negative Genitourinary: Positive: Dysuria, Frequency, Urgency Motor: Positive: Negative Neurovascular: Positive: Negative Musculoskeletal: Positive: Negative Neurological: Positive: Negative Psychological: Positive: Negative Is Patient Immunocompromised?: No Physical Exam - Summary Physical Exam Summary: Denies risk for Triage Information Reviewed: Yes Appearance: Well-Appearing Vital Signs: Initial Vital Signs Temp 98.3 F 09/11/18 12:01 Pulse 85 09/11/18 12:01 Resp 14 09/11/18 12:01 BP 118/74 09/11/18 12:01 Pulse Ox 100 09/11/18 12:01 Vital Signs Reviewed: Yes Eye Exam: Normal ENT Exam: Normal Dental Exam: Normal Neck exam: Normal Respiratory Exam: Normal Cardiovascular Exam: Normal Abdominal Exam: Normal Musculoskeletal Exam: Normal Neurological Exam: Normal Psychological Exam: Normal Complaint Female Dx - Course Course Of Treatment: I discussed with the pt the results of the UA. Pt verbalized understanding and agreed to plan of care. - Differential Dx/Diagnosis Differential Diagnosis/HQI/PQRI: Urinary Tract Infection Provider Diagnosis: Dysuria Discharge - Sign-Out/Discharge Documenting (check all that apply): Patient Departure All imaging exams completed and their final reports reviewed: No Studies - Discharge Plan Condition: Stable Disposition: HOME Prescriptions: Nitrofurantoin Monohyd/M-Cryst [Macrobid 100 mg Capsule] 100 mg PO Q12H #10 cap Patient Education Materials: Dysuria (ED) Referrals: Nimisha Davison MD [Primary Care Provider] - As Soon As Possible - Billing Disposition and Condition Condition: STABLE Disposition: Home
--- NOTE | 2018-09-13 07:54 | UC ---
- Progress Note Progress Note: Final urine culture report reviewed today: No growth Patient was started on nitrofurantoin. RN to call the patient and discuss test results and advised to stop nitrofurantoin as she does not appear to have urinary tract infection. If she continues to have symptoms or symptoms getting worse she should go to ER for further testing including blood work and imaging or follow-up with the primary care doctor tomorrow for further evaluation. Course/Dx - Diagnoses Provider Diagnoses: Dysuria Discharge - Sign-Out/Discharge Documenting (check all that apply): Post-Discharge Follow Up All imaging exams completed and their final reports reviewed: No Studies - Discharge Plan Condition: Stable Disposition: HOME Prescriptions: Nitrofurantoin Monohyd/M-Cryst [Macrobid 100 mg Capsule] 100 mg PO Q12H #10 cap Patient Education Materials: Dysuria (ED) Referrals: Nimisha Davison MD [Primary Care Provider] - As Soon As Possible - Billing Disposition and Condition Condition: STABLE Disposition: Home
== END 2018-09-11 13:14 | disposition home or self-care (01) ==
LOC: UCCORT 11:12
DX: R30.0 Dysuria (principal); Z88.0 Allergy status to penicillin
CPT/HCPCS: 81003; 87086; 99212; G0463